=== PATIENT | female | born 1985 | race Caucasian/White ===

== ENCOUNTER → 2025-03-19 | Outpatient (CLI) | payer BC, SELFPAY ==
[2025-03-19 11:07] LABS: EXAGEN MAILED SPECIMEN
[2025-03-19 12:49] LABS: Color, Urine Yellow (Yellow); Glucose, Dipstick Normal (Normal); Ketone-Dipstick Negative (Negative); Leukocyte Esterase-Dipstick Negative /ul (Negative); Nitrite-Dipstick Negative (Negative); Occult Blood-Urine Negative /ul (Negative); Protein-Dipstick 15 mg/dl (Negative); Specific Gravity, Urine 1.010 (1.002-1.030); Urine Bilirubin Dipstick Negative (Negative)
[2025-03-19 13:21] LABS: Hematocrit 42.8 % (37-47); Hemoglobin 14.5 g/dL (12.0-15.0); Immature Granulocytes Count 0.020 X10^3/uL (0.0-0.0); Mean Corp Hgb Conc 33.9 g/dL (32-36); Mean Corpuscular Volume 89.4 fL (81-99); Mean Platelet Vol. 11.3 fl (6.2-12.0); NRBC Flagged by Analyzer 0 % (0-5); Platelet Count 243 K/mm3 (150-450); RBC Distribution Width CV 12.3 % (11.6-14.6); RBC Distribution Width SD 39.8 fl (35.1-43.9); Red Blood Count 4.79 M/mm3 (4.2-5.4); White Blood Count 6.0 K/mm3 (4.4-11.0)
[2025-03-19 13:30] LABS: Creatinine, Urine (random) 97.20 mg/dL (28.00-217.00); Protein, Urine (Random) 6.5 mg/dL (0.0-12.0); Protein:Creat Ratio 67 mg/g CRE (0-200)
[2025-03-19 14:08] LABS: AST(SGOT) 24 U/L (<=31); Alanine Aminotransfer ALT/SGPT 26 U/L (<=34); Albumin, Serum 4.8 g/dL (3.5-5.0); Alkaline Phosphatase 44 U/L (35-104); Anion Gap 15 (5-15); BUN 10 mg/dL (4-19); BUN/Creat Ratio 10.7 RATIO (10-20); Calcium,Total 9.5 mg/dL (7.6-11.0); Carbon Dioxide 21.7 mmol/L (21.0-32.0); Chloride 104 mmol/L (98-108); Globulin 2.4 g/dL (2.2-4.2); Glucose 93 mg/dL (70-99); Potassium 3.9 mmol/L (3.3-5.1)
[2025-03-19 14:12] LABS: CRP < 3.00 mg/L (0.0-3.0); Hepatitis B Surface Antigen Nonreactive (Nonreactive)
[2025-03-19 18:15] LABS: Hepatitis C Antibody Nonreactive (Nonreactive)
== END | disposition home or self-care (01) ==
LOC: MTLAB 10:04
PROVIDERS: PCP Family Medicine; Referring Provider Internal Medicine Rheumatology; Visit Provider Internal Medicine Rheumatology
DX: M06.4 Inflammatory polyarthropathy (principal); R76.8 Other specified abnormal immunological findings in serum
CPT/HCPCS: 80053; 81002; 82570; 84156; 85025; 85652; 86140; 86706; 86803; 87340